=== PATIENT | male | born 1995 | race African-American/Black ===

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

== ENCOUNTER 2017-03-14 08:19 | Emergency (ER) | payer MEDICAID, OTHER ==
[~2017-03-14] VITALS: Ht 188 cm; Wt 59.0 kg
[~2017-03-14 08:19] MED LIST changes: +CRUTMIS25; -HYDR-3533 PO; -IBUP600 PO; +PERC5TAB12 PO; +WALKER WHEELS/F1 MIS; -Z.0.NO CURRENT MEDS
[2017-03-14 08:20] VITALS: BP 131/69; PULSE 105; RESP 20; TEMP 98.7; O2SAT 97
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
[2017-03-14] MEDS ORDERED: IBUPROFEN 800 MG TAB PO ONE (10:00)
[2017-03-14 10:48] VITALS: BP 132/66; PULSE 85; RESP 17; O2SAT 100
--- NOTE | 2017-03-14 11:13 | RADRPT ---
EXAM DATE/TIME: 03/14/2017 10:13 [facility] COMPARISON: KNEE RIGHT LTD (1 OR 2 VWS), February 11, 2017, 21:23. INDICATIONS : Right knee pain since tibial plateau surgery one month ago. MEDICAL HISTORY : None. SURGICAL HISTORY : ORIF of the right tibial plateau. ENCOUNTER: Initial ACUITY: 1 month PAIN SCORE: 8/10 LOCATION: Right patella. FINDINGS: The fracture line involving the lateral aspect of the lateral tibial plateau is again identified. No pleural effusions are identified. There is no evidence of acute fracture. Bony mineralization is norm al. CONCLUSION: 1. Subacute fracture lateral tibial plateau Tucker Mims MD on March 14, 2017 at 10:51 Board Certified Radiologist. This report was verified electronically.
== END 2017-03-14 11:49 | disposition home or self-care (01) ==
LOC: NEPD 08:19
DX: S82.141E Displaced bicondylar fracture of right tibia, subsequent encounter for open fracture type I or II with routine healing (principal); Z48.02 Encounter for removal of sutures; V49.9XXD Car occupant (driver) (passenger) injured in unspecified traffic accident, subsequent encounter
CPT/HCPCS: 73564; 99283